=== PATIENT | male | born 2000 | race African-American/Black ===

== ENCOUNTER 2022-03-01 17:04 | Emergency (ER) | payer MEDICAID | END 2022-03-01 18:25 | disposition home or self-care (01) | LOC: FB.ED 17:04 | DX: M79.644 Pain in right finger(s) (principal) | CPT/HCPCS: 73140-F8; 99283 ==

== ENCOUNTER 2022-10-25 11:55 | Emergency (ER) | payer MEDICAID ==
[2022-10-25] MEDS ORDERED: Ibuprofen 800 MG Tab PO ONE (12:20)
== END 2022-10-25 14:04 | disposition home or self-care (01) ==
LOC: FB.ED 11:55
DX: S93.401A Sprain of unspecified ligament of right ankle, initial encounter (principal); X50.1XXA Overexertion from prolonged static or awkward postures, initial encounter; Y93.61 Activity, american tackle football
CPT/HCPCS: 73610-RT; 99282; 99283; A9270-GY